=== PATIENT | female | born 1940 | race Caucasian/White ===

== ENCOUNTER 2023-04-30 17:48 | Inpatient (IN) | payer OTHER ==
[2023-04-30 18:51] LABS: #Eosinphils 0.2 10x3/uL (0.0-0.5); #Monocytes 0.6 10x3/uL (0.0-1.1); #Neutrophils 3.7 10x3/uL (1.5-8.4); %Basophils 0.7 % (0.0-2.0); %Eosinophils 3.8 % (0.0-6.0); %Lymphocytes 25.2 % (18.0-47.0); %Monocytes 9.1 % (0.0-10.0); Hematocrit 34.6 % (34.9-44.5); Hemoglobin 11.9 g/dL (12.0-15.5); Mean Corpuscular HGB CONC 34.4 g/dL (32.0-36.0); Mean Corpuscular Hemoglobin 32.8 pg (27.0-33.0); Mean Corpuscular Volume 95.3 fl (81.6-98.3); Mean Platelet Volume 9.7 fl (7.4-10.4); Platelet Count 201 10x3/uL (150-450); Red Blood Cell (RBC) Count 3.63 10x6/uL (3.90-5.03); White Blood Cell (WBC) Count 6.1 10x3/uL (3.5-10.5)
[2023-04-30 19:03] LABS: ALT (SGPT) 27 U/L (8-55); AST (SGOT) 24 U/L (5-34); Albumin 4.2 g/dL (3.4-4.8); Alkaline Phosphatase 66 U/L (40-110); Anion Gap 14 mmol/L (10-20); BUN (Urea Nitrogen) 31 mg/dL (9.8-20.1); Bilirubin, Total 0.3 mg/dL (0.2-1.2); Calc. Creatinine Clearance 0 mL/min (70-130); Calcium 9.2 mg/dL (7.8-10.44); Carbon Dioxide 25 mmol/L (23-31); Chloride 103 mmol/L (98-107); Estimated GFR 53; Globulin 2.4 g/dL (2.4-3.5); Glucose 98 mg/dL (83-110); Potassium 4.1 mmol/L (3.5-5.1); Protein, Total 6.6 g/dL (5.8-8.1); Sodium 138 mmol/L (136-145)
[2023-04-30 19:07] LABS: Troponin I Less than 0.010 ng/mL (< 0.028)
[2023-04-30] MEDS ORDERED: Aspirin 81 mg Enteric Coated Tablet ONE (21:55)
[2023-04-30] MEDS ORDERED: hydrALAZINE 20 MG/ML VIAL ONE (22:13)
[2023-04-30] MEDS ORDERED: Ondansetron PF 4 MG/2 ML Vial ONE (23:07)
[2023-05-01] MEDS ORDERED: dilTIAZem 25 MG/5 ML VIAL ONE (00:48)
[2023-05-01] MEDS ORDERED: dilTIAZem 30 MG TAB PO SCH (02:30)
[2023-05-01] MEDS ORDERED: dilTIAZem 125 MG/25 ML SDV ONE (02:42)
[2023-05-01] MEDS ORDERED: Acetaminophen 325 MG TAB PO PRN (02:51)
[2023-05-01] MEDS ORDERED: Senokot S 8.6-50 MG TAB PO PRN (02:51)
[2023-05-01] MEDS ORDERED: Ondansetron PF 4 MG/2 ML Vial IVP PRN (02:51)
[2023-05-01] MEDS ORDERED: Calcium Carbonate 500 MG ChewTAB PO PRN (02:51)
[2023-05-01] MEDS ORDERED: dilTIAZem 125 MG in Sodium Chloride 0.9% 100 ML IVPB SCH (03:00)
[2023-05-01] MEDS ORDERED: Lactated Ringer's 500 ML IV SCH (03:15)
[2023-05-01] MEDS ORDERED: Lactated Ringer's 1,000 ML IV SCH (03:15)
[2023-05-01 05:59] VITALS: BMI 22.2
[2023-05-01 06:56] LABS: Anion Gap 13 mmol/L (10-20); BUN (Urea Nitrogen) 24 mg/dL (9.8-20.1); Calc. Creatinine Clearance 55 mL/min (70-130); Calcium 8.8 mg/dL (7.8-10.44); Carbon Dioxide 22 mmol/L (23-31); Cardiac Risk 2.3 (Less than 4.5); Chloride 105 mmol/L (98-107); Cholesterol 123 mg/dl (< 200 Desired); Estimated GFR 72; Glucose 119 mg/dL (83-110); HDL Cholesterol 53 mg/dL (>60 Neg Risk); LDL Cholesterol, Calculated 62 mg/dL; Potassium 3.6 mmol/L (3.5-5.1); Sodium 136 mmol/L (136-145); Triglycerides 40 mg/dL (Less than 150)
[2023-05-01] MEDS ORDERED: Aspirin Chewable 81 MG TAB ONE (08:12)
[2023-05-01] MEDS ORDERED: Famotidine 20 MG TAB ONE (08:12)
[2023-05-01] MEDS: dilTIAZem CD 120 MG CAP PO SCH (08:28)
[2023-05-01] MEDS: Aspirin 81 mg Enteric Coated Tablet PO SCH (08:28)
[2023-05-01] MEDS: Famotidine 20 MG TAB PO SCH ×2 (08:28→21:16)
[2023-05-01] MEDS: Multivitamin W/ Minerals 1 TAB PO SCH (08:29)
[2023-05-01 09:29] LABS: Free T4 (Free Thyroxine) 1.03 ng/dL (0.70-1.48)
[2023-05-01] MEDS ORDERED: Atorvastatin Calcium 40 MG TAB PO SCH (21:00)
[2023-05-01] MEDS: Apixaban 5 MG TAB PO SCH (21:16)
[2023-05-02] MEDS ORDERED: Levothyroxine Sodium 50 MCG TAB PO SCH (06:00)
[2023-05-02] MEDS ORDERED: Valsartan 80 MG TAB PO SCH (09:00)
[2023-05-02] MEDS ORDERED: Hydrochlorothiazide 25 MG TAB PO SCH (09:00)
[2023-05-02 09:27] LABS: Magnesium 1.8 mg/dL (1.6-2.6)
[2023-05-02] MEDS: Famotidine 20 MG TAB PO SCH (09:36)
[2023-05-02] MEDS: Aspirin 81 mg Enteric Coated Tablet PO SCH (09:36)
[2023-05-02] MEDS: Apixaban 5 MG TAB PO SCH (09:36)
[2023-05-02] MEDS: dilTIAZem CD 120 MG CAP PO SCH (09:36)
[2023-05-02] MEDS: Multivitamin W/ Minerals 1 TAB PO SCH (09:36)
[2023-05-02] MEDS ORDERED: Magnesium 2 GM/50 ML(in water) 2 GM in Premix 1 BAG IVPB SCH (11:15)
[2023-05-02 12:34] VITALS: BP 187/77; TEMP 98
[2023-05-02] MEDS ORDERED: Cyanocobalamin (Vitamin B-12) 1,000 MCG TAB PO SCH (21:00)
== END 2023-05-02 16:44 | disposition home or self-care (01) | DRG 66 ==
LOC: CSHERS 17:48 → CSHERHOLD 05-01 02:51 → CSHTELE 05-01 14:04
PROVIDERS: ADMIT Student in an Organized Health Care Education/Training Program; ATTEND Internal Medicine
DX: I63.032 Cerebral infarction due to thrombosis of left carotid artery (principal); E78.5 Hyperlipidemia, unspecified; Z90.89 Acquired absence of other organs; H54.7 Unspecified visual loss; H53.461 Homonymous bilateral field defects, right side; N18.30 Chronic kidney disease, stage 3 unspecified; I12.9 Hypertensive chronic kidney disease with stage 1 through stage 4 chronic kidney disease, or unspecified chronic kidney disease; D63.1 Anemia in chronic kidney disease; Z82.3 Family history of stroke; E03.9 Hypothyroidism, unspecified; R79.89 Other specified abnormal findings of blood chemistry; I48.0 Paroxysmal atrial fibrillation; E83.42 Hypomagnesemia; D53.9 Nutritional anemia, unspecified; R29.702 NIHSS score 2
CPT/HCPCS: 36415; 70450; 70544; 70549; 70551; 71045; 80048; 80053; 80061; 83735; 84439; 84443; 84484; 85025; 93005; 93306; 93880; 94760; J0360; J1650; J2405; J7120

== ENCOUNTER 2024-11-03 14:19 | Outpatient (CLI) | payer SELFPAY | END 2024-11-03 14:20 | disposition home or self-care (01) | LOC: CSHWCC 14:19 | PROVIDERS: ATTEND Nurse Practitioner Family | DX: I87.311 Chronic venous hypertension (idiopathic) with ulcer of right lower extremity (principal); L97.311 Non-pressure chronic ulcer of right ankle limited to breakdown of skin; I73.9 Peripheral vascular disease, unspecified; I10 Essential (primary) hypertension | CPT/HCPCS: 11042 ==

== ENCOUNTER 2024-12-16 10:13 | Outpatient (CLI) | payer SELFPAY | END 2024-12-16 10:14 | disposition home or self-care (01) | LOC: CSHWCC 10:13 | PROVIDERS: ATTEND Nurse Practitioner Family | DX: I87.311 Chronic venous hypertension (idiopathic) with ulcer of right lower extremity (principal); L97.311 Non-pressure chronic ulcer of right ankle limited to breakdown of skin; I73.9 Peripheral vascular disease, unspecified; I10 Essential (primary) hypertension | CPT/HCPCS: 11042; 99212; G0463 ==

== ENCOUNTER 2024-12-23 11:13 | Outpatient (CLI) | payer SELFPAY | END 2024-12-23 11:14 | disposition home or self-care (01) | LOC: CSHWCC 11:13 | PROVIDERS: ATTEND Nurse Practitioner Family | DX: I87.311 Chronic venous hypertension (idiopathic) with ulcer of right lower extremity (principal); L97.311 Non-pressure chronic ulcer of right ankle limited to breakdown of skin; I10 Essential (primary) hypertension; I73.9 Peripheral vascular disease, unspecified | CPT/HCPCS: 11042 ==

== ENCOUNTER 2024-12-30 11:38 | Outpatient (CLI) | payer SELFPAY | END 2024-12-30 11:39 | disposition home or self-care (01) | LOC: CSHWCC 11:38 | PROVIDERS: ATTEND Nurse Practitioner Family | DX: I87.311 Chronic venous hypertension (idiopathic) with ulcer of right lower extremity (principal); L97.311 Non-pressure chronic ulcer of right ankle limited to breakdown of skin; I73.9 Peripheral vascular disease, unspecified; I10 Essential (primary) hypertension ==

== ENCOUNTER 2025-01-16 11:27 | Outpatient (CLI) | payer SELFPAY | END 2025-01-16 11:28 | disposition home or self-care (01) | LOC: CSHWCC 11:27 | PROVIDERS: ATTEND Nurse Practitioner Family | DX: I87.311 Chronic venous hypertension (idiopathic) with ulcer of right lower extremity (principal); L97.311 Non-pressure chronic ulcer of right ankle limited to breakdown of skin; I73.9 Peripheral vascular disease, unspecified; I10 Essential (primary) hypertension | CPT/HCPCS: 99212; G0463 ==